=== PATIENT | male | born 1950 | race Caucasian/White ===

== ENCOUNTER 2022-11-08 13:49 | Outpatient (CLI) | payer MEDICARE, SELFPAY ==
--- NOTE | 2022-11-08 15:07 | ECG_ITS ---
Measurements Intervals [place] Rate: 63 P: 2 OK: 185 QRS: -21 QRSD: 118 T: 8 QT: 394 QTc: 404 Interpretive Statements SINUS RHYTHM BORDERLINE LEFT AXIS DEVIATION [QRS AXIS < -20] INCOMPLETE RIGHT BUNDLE BRANCH BLOCK [90+ ms QRS DURATION, TERMINAL R IN V1/V2, 40+ ms S IN I/aVL/V4/V5/V6] MODERATE VOLTAGE CRITERIA FOR LVH, CONSIDER NORMAL VARIANT [MEETS CRITERIA IN ONE OF: R(aVL), S(V1), R(V5), R(V5/V6)+S(V1)] NO PREVIOUS ECG AVAILABLE FOR COMPARISON Electronically Signed On 11-09-2022 12:10:12 CDT by Phil Mcmillan M.D.
[2022-11-08 15:32] LABS: Basophils Absolute Auto 0.1 K/mm3 (0.0-0.1); Basophils Percent Auto 0.5 % (0.2-1.2); Eosinophils Absolute Auto 0.3 K/mm3 (0-0.3); Eosinophils Percent Auto 3.1 % (0-4.4); Hematocrit 42.1 % (42.0-52.0); Hemoglobin 13.9 g/dL (14.0-18.0); Immature Granulocyte Absolute 0.07 K/mm3 (0.00-0.031); Immature Granulocyte Percent A 0.7 % (0-0.5); Lymphocytes Absolute Auto 1.94 K/mm3 (0.9-3.2); Lymphocytes Percent Auto 19.1 % (18.3-44.2); Mean Corpuscular Hemoglobin 32.5 pg (26-34); Mean Corpuscular Volume 98.4 fl (80-100); Monocytes Absolute Auto 0.9 K/mm3 (0.1-0.6); Monocytes Percent Auto 8.8 % (2.6-8.5); Neutrophils Absolute Auto 6.9 K/mm3 (1.3-6.7); Neutrophils Percent Auto 67.8 % (45.5-73.1); Platelet Count Result 197 k/mm3 (150-375); Red Blood Count 4.28 M/mm3 (4.6-6.20); Red Cell Distribution Width 11.9 % (11.5-14.5); White Blood Count 10.2 K/mm3 (4.5-10.0)
[2022-11-08 15:59] LABS: Hemoglobin A1C 5.4 % (<5.7)
[2022-11-08 16:01] LABS: Urine Cotinine NEGATIVE
== END 2022-11-08 13:50 | disposition home or self-care (01) ==
LOC: ANHSURGERY 13:56
PROVIDERS: PCP Family Medicine; Visit Provider Orthopaedic Surgery
DX: Z01.818 Encounter for other preprocedural examination (principal); M16.12 Unilateral primary osteoarthritis, left hip; E78.5 Hyperlipidemia, unspecified; I10 Essential (primary) hypertension; I45.10 Unspecified right bundle-branch block; R93.1 Abnormal findings on diagnostic imaging of heart and coronary circulation
CPT/HCPCS: 80307; 83036; 85025; 87081; 93005

== ENCOUNTER 2022-11-30 01:07 | Day surgery (SDC) | payer MEDICARE, SELFPAY ==
[2022-11-08 14:18] VITALS: BP 146/78; PULSE 66; RESP 16; TEMP 36.4; O2SAT 98; BMI 29.2
--- NOTE | 2022-11-08 14:37 | PC.NURSE ---
Report to the Outpatient Waiting Room, entrance under the green pavilion located off [facility], at time _12:00PM on date ___11/30/22____. Planned Procedure Time: __2:00PM . Time changes happen often and if your time is changed the preop area will call you the afternoon before. - You and your visitor will be asked to self-screen and do not enter if you have any COVID symptoms. - A mask is optional within the hospital at this time. Patients may have clear liquids (water, carbonated beverages, clear teas, apple juice) until 3 hours prior to surgery with a maximum of 20 ounces. - No food from midnight until time of surgery. Take the following medications with a SIP of water the morning of surgery: ____METOPROLOL DO NOT STOP ANY OF YOUR OTHER PRESCRIPTION MEDICATIONS PRIOR TO SURGERY ?EXCEPT THE FOLLOWING Medications to discontinue per physician ___HOLD ALL VITAMINS/SUPPLEMENTS 3 DAYS PRE-OP Date to take last dose__11/26/22 Please no make-up, nail venezuelan, hairspray, perfume, deodorant, or body powder the day of surgery. No jewelry (including any body piercings) or valuables the day of surgery, leave them at home. Please take a shower or bath the night before, or the morning of, surgery with an antibacterial soap. Wear comfortable, loose fitting clothing. - Jewelry must be removed prior to entering the operating room. Rings and piercings that are not removed may be cut off. - The hospital will not accept responsibility for valuables. - Please leave all valuables, including medications, at home the day of surgery. If you are going home after surgery, a licensed milk delivery driver must drive you home. - NO public transportation without another adult if you receive anesthesia. - We recommend that an adult stay with you for 24 hours following discharge. - We also recommend that you do not drive, make important decision, drink alcoholic beverages, or take any drugs that were not prescribed by your health care provider for at least 24 hours after your discharge time. Follow any additional instructions given to you from your surgeon. If you or anyone in your household have experienced Covid symptoms in the past week, please notify your surgeon or the nurse liaison at the phone number below for possible testing. Telephone instructions given to __PATIENT & WIFE and asked if any additional questions and then verbalized understanding. Patient advised to call surgeon office or pre surgery nurse liaison [phone] if any additional questions.
--- NOTE | 2022-11-29 14:11 | WPDANESEPPF ---
Anes - Initial Pre Proc Eval Procedure: Operation Date: 11/30/22 14:00 Proposed Procedures p Left Total Hip Arthroplasty - Niels Medina MD Date/Time: 11/29/22 14:11 Surgeon: Niels Medina MD Pre Op Diagnosis: Prim O A Lt Hip Patient Data Age: 72 Gender: M Height: 1.77 m Weight: 91.9 kg Last Vital Signs Temp 36.4 C L 11/08/22 14:18 Pulse 66 11/08/22 14:18 Resp 16 11/08/22 14:18 BP 146/78 H 11/08/22 14:18 Pulse Ox 98 11/08/22 14:18 O2 Del Method Room Air 11/08/22 14:18 Allergies Allergy/AdvReac Type Severity Reaction Status Date / Time No Known Allergies Allergy Verified 11/30/22 12:11 Home Medications Medication Instructions Recorded Confirmed Type docusate sodium 100 mg capsule 100 mg PO DAILY 11/12/21 11/30/22 History finasteride 5 mg tablet 5 mg PO DAILY 11/12/21 11/30/22 History lisinopril 10 mg tablet 10 mg PO QAM 11/12/21 11/30/22 History omeprazole 20 mg capsule,delayed 20 mg PO EVERY OTHER DAY 11/12/21 11/30/22 History release tadalafil 5 mg tablet (Cialis) 5 mg PO Q3-4D 11/12/21 11/30/22 History atorvastatin 10 mg tablet 10 mg PO HS 11/23/21 11/30/22 History metoprolol tartrate 25 mg tablet 12.5 mg PO BID 09/24/22 11/30/22 History coenzyme Q10 100 mg capsule 200 mg PO HS 11/08/22 11/30/22 History (CoQ-10) ibuprofen 200 mg tablet 600 mg PO Q6H PRN Pain 11/08/22 11/30/22 History aspirin 81 mg tablet,delayed 81 mg PO BID 14 days #28 tabs 11/30/22 Rx release meloxicam 15 mg tablet 15 mg PO DAILY #30 tabs 11/30/22 Rx oxycodone-acetaminophen 5 mg-325 1 - 2 tablet PO Q4-6H PRN pain #30 11/30/22 Rx mg tablet tabs amoxicillin 500 mg-potassium 1 tablet PO Q12H #20 tabs 12/04/22 Rx clavulanate 125 mg tablet Patient hx anesthesia problems: none Family hx anesthesia problems: none Results Review: All pre-operative results and documents have been reviewed as part of the pre-operative evaluation. [facility] Past Medical History Medical History (Updated 11/30/22 @ 07:45 by JACKIE Izquierdo) Fistula Hyperlipidemia Hypertension Kidney stones Non-sustained ventricular tachycardia Sleep apnea Surgical History Surgical History (Updated 11/30/22 @ 07:45 by JACKIE Izquierdo) History of adenoidectomy History of detached retina repair History of inguinal hernia repair History of lithotripsy History of loop recorder (~08/27/22) History of rectal surgery History of tonsillectomy History of tooth extraction Family History Family History Mother Dementia Father Stomach cancer Bladder cancer Enlarged heart Sibling ALS (amyotrophic lateral sclerosis) Other Pancreatic cancer Social History Social History Smoking status: Never smoker Tobacco type: cigarettes Smokeless tobacco user: chewing tobacco Smoking end date: 02/07/97 Additional smoking assessment comments: QUIT CHEWING TABACCO 1994 Alcohol intake: current Drinks per week: 1 Substance use: never Substance use type: does not use Lack of Transportation: No Lack of Food: Never True Current Housing: I Have Housing Concerned About Future Housing: No Difficulty Paying Gas/Electric Bills: No Difficulty Paying for Meds: No Currently Unemployed: No Education: High School Diploma/GED Difficulty w/ Childcare or Family Care: No Living arrangements: with family Additional living arrangements comments: Spiritual care concerns: No Anes - Eval Final PreProcedure Day of Procedure 11/29/22 14:11 Patient weight: overweight Heart: regular rate and rhythm Lungs: clear to auscultation Airway: Mallampati scale class II Neurological: alert and oriented Last oral intake: >/= 8 hours ASA classification: III Emergent: no Anesthetic plan: proceed Anesthesia type and monitoring: general ETT
[2022-11-30] VITALS (13 sets, daily range): BP systolic 129–148; BP diastolic 64–104; PULSE 76–96; RESP 12–20; TEMP 36.2–36.9; O2SAT 95–99
--- NOTE | ~2022-11-30 | XR_ITS ---
EXAMINATION: XR hip LT min 2V DATE: 11/30/2022 16:11 INDICATION: Total left hip arthroplasty. Postop. TECHNIQUE: 2 views of left hip were obtained. COMPARISON: Left hip radiographs 09/24/2022 FINDINGS: There is a total left hip arthroplasty in near-anatomic alignment. No fracture. There is ga s in the soft tissues, consistent with recent surgery. IMPRESSION: 1. Total left hip arthroplasty in near-anatomic alignment. Reviewed, dictated and finalized at location E.
--- NOTE | 2022-11-30 10:35 | WPDHPUPDATE1 ---
History and Physical Update Update Date/Time: 11/30/22 10:35 History and Physical has been reviewed, including an updated exam of the patient. There are NO changes in the patient's condition. Risks, benefits, and alternatives have been discussed and questions answered. Patient agrees to proceed with procedure.
[2022-11-30] MEDS: ACETAMINOPHEN 500 MG TABLET 1000 MG PO ×3 (12:30→22:54)
[2022-11-30] MEDS: LACTATED RINGERS 1,000 ML 30 ML IV CONT ×2 (12:40→15:42)
[2022-11-30] MEDS: TRANEXAMIC ACID 1,000MG/ISO100 1,000 MG/100 ML BAG 200 MG IVPB (13:29)
[2022-11-30] MEDS: ceFAZolin 2 GM/D5W 50 ML 2 GM/50 ML BAG IVPB ×2 (13:43→21:06)
--- NOTE | 2022-11-30 15:41 | W.PM.PROC2 ---
Procedure Note - Detailed Date of Procedure 11/30/22 Pre-op Diagnosis Prim O A Lt Hip Post-op Diagnosis Same Procedure Performed Left Total Hip Arthroplasty Surgeon Niels Medina MD Pastrycook Caryn Almanzar PA-C Anesthesia General Findings Good bone quality. Large stature. Large inferior osteophyte excised. Very stiff and contracted joint. Description of Procedure The patient was given preoperative antibiotics. A general anesthetic was administered. The patient was carefully placed in the lateral decubitus position on the PEG board. The shoulders and hips were carefully positioned for component and leg length positioning reference. The hip was prepped and draped in the usual sterile fashion. A longitudinal incision was created over the posterior aspect of the greater trochanter. Careful dissection was brought down through the deep fascia with electrocautery. A minimally invasive optimized posterior approach to the hip was performed. The short external rotators and capsule were taken down in an L-shaped capsulotomy. The tissue was tagged for later repair using number 2 high strength suture. The femoral neck was measured and taken in situ. The femoral head was removed. The acetabulum was carefully exposed. The inferior capsule was released. The labrum was resected. The acetabulum was sequentially reamed to the intended cup size. The cup was impacted into position with excellent press-fit. Typical anatomic landmarks, including the bony contact points as well as the inferior transverse acetabular ligament were used to confirm cup positioning with preoperative templating. Attention was turned to the femur, which was carefully exposed. The hip was reamed and then broached sequentially. Excellent press-fit was obtained with the broach. The hip was trialed. Measurements were utilized, including the lesser trochanter as well as the center of the femoral head and the tip of the trochanter, and excellent assessment of the offset and leg lengths were confirmed. The real component was impacted into position. Trialing confirmed appropriate leg length and offset with soft tissue balancing as well apparent feel of the leg, both at the knee and the heel. Soft tissues were assessed using the the iliotibial band. Reduction of the posterior capsule and external rotators were also used as a secondary assessment. The hip was copiously irrigated with pulsatile lavage antibiotic solution periodically throughout the procedure. The real components were then assembled and reduced. The hip was stable throughout typical maneuvers, including extension, external rotation to 70 degrees, the position of sleep as well as flexion to 90 degrees with internal rotation to 45 degrees. The shake test confirmed stability without impingement. Osteophytes were removed as necessary. The short external rotators and capsule were repaired back to the posterior trochanter through drill holes. The deep fascia was repaired with running number 2 Quill suture, followed by 0 Stratafix suture and 2-0 Stratafix suture in the dermis. Steri-Strips were placed on the skin, followed by a sterile silver occlusive dressing. There were no complications. Meticulous hemostasis was maintained with the AquaMantys device. The patient was brought to the recovery room in stable condition. There were no complications. Physician night assistant, Caryn Almanzar PA-C, required for surgery; including patient positioning, draping, tissue retraction, maintaining instrument position, hip dislocation/ relocation, wound closure, and dressing placement. Implants The Accolade II hip stem, 127 degree size 8 , was utilized with excellent press-fit. The 58 mm Trident II acetabular component was impacted with excellent press-fit stability. 10 degree elevated polyethylene liner. The +2.5, 36 mm Biolox ceramic femoral head was utilized. Estimated Blood Loss 200 Drains No Packing No Pathology None sent Com
--- NOTE | 2022-11-30 17:00 | PC.NURSE ---
This patient, Austin Gamez, was admitted to [facility] Surg Room 319-01. Patient/family oriented to hospital policies and general routines including ID bracelet, bed and alarms, visiting hours, pain management, procedures, bathroom and other care routines, personal items, smoking policy, room service/diet, and visiting hours. Information on how to activate the Rapid Response Team has been discussed. Patient/Family are encouraged to report perceived risks to care and to ask questions if they do not understand what they are told or what they should do.
[2022-11-30] MEDS: MELOXICAM 7.5 MG TABLET PO (17:57)
[2022-11-30] MEDS: SENNA/DOCUSATE SODIUM TABLET 2 TAB PO (17:58)
[2022-11-30] MEDS: PANTOPRAZOLE 40 MG TABLET PO (17:58)
[2022-11-30] MEDS: ASPIRIN 81 MG ENTERIC TABLET PO (17:58)
[2022-11-30] MEDS: ATORVASTATIN 10 MG TABLET PO (21:05)
[2022-11-30] MEDS: FAMOTIDINE 20 MG TABLET PO (21:06)
[2022-11-30] MEDS: METOPROLOL TARTRATE 12.5 MG TABLET PO (21:06)
[2022-12-01] VITALS: BP 119/69; PULSE 74; RESP 18; TEMP 36.3; O2SAT 98
[2022-12-01] MEDS: CYCLOBENZAPRINE HCL 10 MG TABLET PO (01:09)
[2022-12-01 04:00] VITALS: BP 136/68; PULSE 86; RESP 18; TEMP 37.2; O2SAT 97
[2022-12-01] MEDS: ACETAMINOPHEN 500 MG TABLET 1000 MG PO ×2 (04:23→09:37)
[2022-12-01] MEDS: ceFAZolin 2 GM/D5W 50 ML 2 GM/50 ML BAG IVPB ×2 (04:23→11:02)
[2022-12-01 06:02] LABS: Basophils Percent Auto 0.2 % (0.2-1.2); Eosinophils Percent Auto 0.1 % (0-4.4); Hematocrit 37.2 % (42.0-52.0); Hemoglobin 12.4 g/dL (14.0-18.0); Immature Granulocyte Absolute 0.06 K/mm3 (0.00-0.031); Immature Granulocyte Percent A 0.5 % (0-0.5); Lymphocytes Absolute Auto 1.04 K/mm3 (0.9-3.2); Lymphocytes Percent Auto 8.8 % (18.3-44.2); Mean Corpuscular HGB Conc 33.3 g/dl (32-36); Mean Corpuscular Hemoglobin 32.1 pg (26-34); Mean Corpuscular Volume 96.4 fl (80-100); Mean Platelet Volume 9.6 fl (7.4-10.4); Monocytes Absolute Auto 1.5 K/mm3 (0.1-0.6); Monocytes Percent Auto 12.6 % (2.6-8.5); Neutrophils Absolute Auto 9.2 K/mm3 (1.3-6.7); Neutrophils Percent Auto 77.8 % (45.5-73.1); Platelet Count Result 172 k/mm3 (150-375); Red Blood Count 3.86 M/mm3 (4.6-6.20); Red Cell Distribution Width 12.1 % (11.5-14.5); White Blood Count 11.8 K/mm3 (4.5-10.0)
[2022-12-01 06:16] LABS: Anion Gap 8 mmol/L (8-16); Blood Urea Nitrogen 19 mg/dL (9-20); Calcium 8.5 mg/dL (8.4-10.2); Carbon Dioxide 23 mmol/L (22-30); Chloride 102 mmol/L (98-107); Estimated CRCL calculation 72 ml/min; Estimated Glomerular Filt Rate > 60; Glucose 124 mg/dL (65-110); Potassium 3.7 mmol/L (3.4-5.0); Sodium 133 mmol/L (137-145)
[2022-12-01 08:00] VITALS: BP 133/67; PULSE 82; RESP 16; TEMP 36.3; O2SAT 97
--- NOTE | 2022-12-01 08:43 | PM.DS ---
DS: Admitting Diagnosis Discharge Date 12/01/22 Admitting Diagnosis OA Left hip DS: Discharge Diagnosis Discharge Diagnosis (1) Status post total hip replacement, left: Code(s): Z96.642 - Presence of left artificial hip joint Status: Acute Assessment and Plan: Postop day 1: Left total Hip arthroplasty. Patient tolerated procedure well. No complications. Pain manageable with pain medication. No numbness or tingling. We had a lengthy discussion regarding postoperative wound care, limitations, expectations, and exercises. Patient shows good understanding. He has had initial physical therapy and is tolerating it well. DVT prophylaxis: 81 mg baby aspirin b.i.d. for 14 days. Pain medication: Percocet. Meloxicam. Patient has followup appointment with Dr. Medina in 3 weeks. DS: Summary Hospital Course Reason for hospitalization: Total hip arthroplasty Hospital Course: Patient tolerated procedure well. Has had initial PT/OT. Patient did have bleeding from incision site. Dressing removed, cleaned with Betadine, steri strips reapplied, dressing reapplied. No drainage at the time of discharge. Status at Discharge Functional status at discharge: uses cane/walker Overall status at discharge: patient is progressing back to baseline Time Spent with Patient Time attestation: Total time spent providing and/or coordinating discharge services: Exam Narrative: Thin, tall Male. Resting comfortably in chair. Wearing compression socks bilaterally. Dressing dry and intact with no drainage. Mild swelling. No ecchymosis. No erythema. No hematoma. Range of motion limited due to pain. Calf nontender. Thigh nontender. Neurologic status intact. No varicosities. Distal pulses palpable. DS: Data Data Completed and Pending Labs on day of discharge: Labs from last 24 hours 12/01/22 11/30/22 05:47 12:34 WBC 11.8 H RBC 3.86 L Hgb 12.4 L Hct 37.2 L MCV 96.4 MCH 32.1 MCHC 33.3 RDW 12.1 Plt Count 172 MPV 9.6 Immature Gran % (Auto) 0.5 Neut % (Auto) 77.8 H Lymph % (Auto) 8.8 L [place] % (Auto) 12.6 H Eos % (Auto) 0.1 Baso % (Auto) 0.2 Lymph # (Auto) 1.04 [place] # (Auto) 1.5 H Eos # (Auto) 0.0 Baso # (Auto) 0.0 Abs Immat Gran (auto) 0.06 H Absolute Neuts (auto) 9.2 H Absolute Nucleated RBC 0.0 Nucleated RBC % 0.0 Sodium 133 L Potassium 3.7 Chloride 102 Carbon Dioxide 23 Anion Gap 8 BUN 19 Creatinine 0.80 Estim Creat Clear Calc 72 Estimated GFR > 60 Glucose 124 H Calcium 8.5 Blood Type A Positive Antibody Screen Negative Discharge Plan Discharge Patient Disposition: Home, Self-Care Discharge Instructions: See green instruction sheets Patient Instructions: Oxycodone/Acetaminophen (By mouth), Narcotic Safety (DC), Surgical Site Infections (GEN), Precautions after Total Joint Replacement Surgery (DC), Total Hip Replacement (DC) Stand Alone Forms: General Discharge Instructions Follow-up/Referrals: Caryn Almanzar PA [Physician Small Business Banking Officer] - Discharge Medications: New meloxicam 15 mg tablet 15 mg PO DAILY Qty: 30 0RF Rx Instructions: Cut in half. Take 1/2 in morning and 1/2 at night. Take with food. Stop if stomach upset. aspirin 81 mg tablet,delayed release (DR/EC) 81 mg PO BID 14 Days Qty: 28 0RF oxycodone-acetaminophen 5-325 mg tablet 1 - 2 tablet PO Q4-6H MDD 6 PRN (Reason: pain) Qty: 30 0RF Continued atorvastatin 10 mg tablet 10 mg PO HS lisinopril 10 mg tablet 10 mg PO QAM tadalafil [Cialis] 5 mg tablet 5 mg PO Q3-4D Rx Instructions: TAKES EVERY 3RD DAY docusate sodium 100 mg capsule 100 mg PO DAILY finasteride 5 mg tablet 5 mg PO DAILY omeprazole 20 mg capsule,delayed release(DR/EC) 20 mg PO EVERY OTHER DAY metoprolol tartrate 25 mg tablet 12.5 mg PO BID coenzyme Q10 [CoQ-10] 100 mg Capsule
[2022-12-01 09:35] VITALS: PULSE 82
[2022-12-01] MEDS: METOPROLOL TARTRATE 12.5 MG TABLET PO (09:35)
[2022-12-01] MEDS: lisinopriL 10 MG TABLET PO (09:35)
[2022-12-01] MEDS: MELOXICAM 7.5 MG TABLET PO (09:35)
[2022-12-01] MEDS: DOCUSATE SODIUM 100 MG CAPSULE PO (09:35)
[2022-12-01] MEDS: ASPIRIN 81 MG ENTERIC TABLET PO (09:36)
[2022-12-01] MEDS: FINASTERIDE 5 MG TABLET PO (09:36)
[2022-12-01] MEDS: polyethylene glycoL 3350 17 GM POWD.PACK PO (09:36)
[2022-12-01] MEDS: SENNA/DOCUSATE SODIUM TABLET 2 TAB PO (09:36)
[2022-12-01] MEDS: FAMOTIDINE 20 MG TABLET PO (09:36)
[2022-12-01 12:00] VITALS: BP 117/56; PULSE 83; RESP 16; TEMP 36.3; O2SAT 95
== END 2022-12-01 12:35 | disposition home or self-care (01) ==
LOC: ANHSURGERY 11:45 → ANH3MEDSUR 12-01 02:14
PROVIDERS: Physician Assistant Surgical; PCP Family Medicine; Visit Provider Orthopaedic Surgery
PROC: (CPT 27130; principal; 2022-11-30 14:00)
DX: M16.12 Unilateral primary osteoarthritis, left hip (principal); E78.5 Hyperlipidemia, unspecified; I10 Essential (primary) hypertension; G47.30 Sleep apnea, unspecified; F17.220 Nicotine dependence, chewing tobacco, uncomplicated; Z80.52 Family history of malignant neoplasm of bladder; Z80.0 Family history of malignant neoplasm of digestive organs
CPT/HCPCS: 27130; 36415; 73502; 80048; 85025; 86850; 86900; 86901; 97110; 97161; 97165; 97530; 97535; A9270; C1776; J0171; J0690; J1100; J1170; J1885; J2250; J2270; J2405; J2704; J2795; J3010; J7120

== ENCOUNTER 2023-01-19 10:29 | Outpatient (CLI) | payer MEDICARE, SELFPAY ==
--- NOTE | ~2023-01-19 | XR_ITS ---
AP view of the pelvis and AP and lateral views of the left hip Clinical history: Pain Findings: No acute fracture or dislocation is seen. Left hip arthroplasty in place. Right hip joint s pace preserved. SI joints are intact. Soft tissues are unremarkable. Impression: No acute abnormality is seen. Left hip arthroplasty in place. Reviewed, dictated and finalized at location M. CHOPPER Impression: No acute abnormality is seen. Left hip arthroplasty in place.
== END 2023-01-19 10:30 | disposition home or self-care (01) ==
PROVIDERS: PCP Family Medicine; Visit Provider Orthopaedic Surgery
DX: Z09 Encounter for follow-up examination after completed treatment for conditions other than malignant neoplasm (principal); Z96.642 Presence of left artificial hip joint
CPT/HCPCS: 73502

== ENCOUNTER 2023-04-22 12:23 | Outpatient (CLI) | payer MEDICARE, SELFPAY ==
--- NOTE | ~2023-04-22 | XR_ITS ---
AP and lateral views of the left hip Clinical history: Pain Findings: No acute fracture or dislocation is seen.. Left hip arthroplasty in place, without hardware complication. Soft tissues are unremarkable. Impression: No acute abnormality. Left hip arthroplasty. Reviewed, dictated and finalized at location . Impression: No acute abnormality. Left hip arthroplasty.
--- NOTE | ~2023-04-22 | XR_ITS ---
Left Knee Technique: AP, lateral, and sunrise views were obtained. Clinical History: Pain Findings: No fracture or dislocation is seen. Osseous alignment is anatomic. Moderate tricompartmenta l degenerative change present. Soft tissues are unremarkable. No joint effusion is seen. Impression: Moderate tricompartmental degenerative change. Reviewed, dictated and finalized at [facility]. Impression: Moderate tricompartmental degenerative change.
--- NOTE | ~2023-04-22 | XR_ITS ---
Right Knee Technique: AP, lateral, and sunrise views were obtained. Clinical History: Pain Findings: No fracture or dislocation is seen. There is moderate tricompartmental degenerative change, with medial compartment narrowing. Soft tissues are unremarkable. No joint effusion is seen. Impression: Moderate tricompartmental degenerative change, with medial compartment narrowing. Reviewed, dictated and finalized at location . Impression: Moderate tricompartmental degenerative change, with medial compartment narrowin g.
== END 2023-04-22 12:24 | disposition home or self-care (01) ==
LOC: ANHIMG 12:26
PROVIDERS: PCP Family Medicine; Visit Provider Orthopaedic Surgery
DX: M17.0 Bilateral primary osteoarthritis of knee (principal); Z96.642 Presence of left artificial hip joint
CPT/HCPCS: 73502; 73564

== ENCOUNTER 2023-12-16 11:03 | Outpatient (CLI) | payer MEDICARE, SELFPAY ==
--- NOTE | ~2023-12-16 | XR_ITS ---
EXAMINATION: XR knee LT min 4V DATE: 12/16/2023 11:44 INDICATION: Unilateral primary osteoarthritis, left knee. TECHNIQUE: 5 views of left knee including standing views were obtained. COMPARISON: Left knee radiographs 04/22/2023 FINDINGS: There is varus angulation at the knee. No fracture. There is severe osteoarthritis of media l compartment, moderate osteoarthritis of patellofemoral compartment, and mild osteoarthritis of late ral compartment. There is a small knee joint effusion. IMPRESSION: 1. Severe left knee osteoarthritis. 2. Small left knee joint effusion. Reviewed, dictated and finalized at location A. CAL PATHOLOGIST
--- NOTE | ~2023-12-16 | XR_ITS ---
EXAMINATION: XR knee RT min 4V DATE: 12/16/2023 11:44 INDICATION: Unilateral primary osteoarthritis, right knee. TECHNIQUE: 6 views of right knee including standing views were obtained. COMPARISON: Right knee radiographs 04/22/2023 FINDINGS: There is varus angulation at the knee. No fracture. There is severe tricompartmental osteoa rthritis. No knee joint effusion. IMPRESSION: 1. Severe right knee osteoarthritis. Reviewed, dictated and finalized at location A. TANNER
== END 2023-12-16 11:04 | disposition home or self-care (01) ==
PROVIDERS: PCP Family Medicine; Visit Provider Orthopaedic Surgery
DX: M17.0 Bilateral primary osteoarthritis of knee (principal)
CPT/HCPCS: 73564

== ENCOUNTER 2024-05-30 13:39 | Outpatient (CLI) | payer MEDICARE, SELFPAY ==
--- NOTE | ~2024-05-30 | XR_ITS ---
XR knee RT min 4V Ordering provider: Niels Medina MD History: . unilateral primary osteoathritis . Comparison: December 16, 2023 FINDINGS: BONES: No acute fracture or dislocation. JOINT SPACES: Severe narrowing of the medial compartment. Marginal osteophytes in the knee and patell a. SOFT TISSUES: Normal. IMPRESSION: No acute osseous abnormality right knee. Severe osteoarthritic changes Reviewed, dictated and finalized at location A.
--- NOTE | ~2024-05-30 | XR_ITS ---
XR knee LT min 4V Ordering provider: Niels Medina MD History: . unilateral primary osteoathritis . Comparison: December 16, 2023 FINDINGS: BONES: No acute fracture or dislocation. JOINT SPACES: Severe narrowing of the medial compartment. Marginal osteophytes in the knee and patell a. Mild narrowing of the lateral compartment. SOFT TISSUES: Normal. IMPRESSION: No acute osseous abnormality left knee. Severe osteoarthritic changes. Reviewed, dictated and finalized at location A.
--- OUTSIDE RECORDS SUMMARY | 2024-05-30 15:48 | XMS_ITS | Encounter Summary ---
Author Organization [facility] Address [address] [place] [address] Care Team Providers Care Coffee Grinder Name Role Phone Benny Rivas MD Primary Care Provider [phone] Elliott Vaughn MD Unavailable [phone] Garland Irvin MD Unavailable [phone] Niels Medina MD Unavailable [phone] Encounter Details Date Type Department Care Team (Late st Contact Info) Description 10/13/2022 Abstract [facility] [address] [place] [address] Garland Irvin MD [address] [place] [address] Social History Tobacco Use Types Packs/Day Years Used Date Smoking Tobacco: Never Smokeless Tobacco: Former Alcohol Use Standard Drinks/Week Comments Never 0 (1 standard drink = 0.6 oz pur e alcohol) Sex and Gender Information Value Date Recorded Sex Assigned at Male 05/02/2024 8:39 AM CDT Legal Sex Male 10:09 PM STRIPER Gender Identity Not on file Sexual Orientation Not on file documented as of this encounter Functional Status * RETIRED Are you deaf or do you have serious difficulty hearing Answer Date of Assessment Author Status No 01/09/2022 5:50 PM STRIPER Activ e * RETIRED Are you blind or do you have serious difficulty seeing, even when wearing glasses? Answer Date of Assessment Author Status No 01/09/2022 5:50 PM STRIPER Activ e * Do you have serious difficulty walking or climbing stairs? Answer Date of Assessment Author Status No 01/09/2022 5:50 PM Alem Fajardo RN Active * Do you have difficulty dressing or bathing? Answer Date of Assessment Author Status No 01/09/2022 5:50 PM Alem Fajardo RN Active * Because of a physical, mental, or emotional condition, do you have difficulty doing errands alone such as visiting a doctor's office or shopping? Answer Date of Assessment Author Status No 01/09/2022 5:50 PM Alem Fajardo RN Active documented as of this encounter Mental Status * Because of a physical, mental, or emotional condition, do you have serious difficulty concentrating, remembering, or making decisions? Answer Entry Date Author Status No 01/09/2022 5:50 PM Alem Fajardo RN Active documented in this encounter Plan of Treatment Upcoming Encounters Date Type Department Care Team (Late st Contact Info) Description 06/15/2024 1:00 AM CDT [facility] [address] [place] [phone] Elliott Vaughn MD [address] [place] [address] 09/20/2024 11:30 AM CDT Office Visit [facility] [address] Garland Irvin MD [address] [place] [phone] documented as of this encounter Visit Diagnoses Not on filedocumented in this encounter Care Teams Coffee Grinder Relationship Specialty [place] [address] [place] [address] [place] [id number] PCP - General FAMILY PRACTICE 10/09/21 Elliott Vaughn MD [address] [place] [address] EP Senior Health Consultant CLINICAL CARDIAC ELECTROPHYSIOLOGY 01/15/22 Garland Irvin MD [address] [place] [address] [facility] CARDIOVASCULAR DISEASE 10/19/22 Niels Medina MD [address] [address] ORTHOPAEDIC SURGERY 10/19/22 documented as of this encounter
--- OUTSIDE RECORDS SUMMARY | 2024-05-30 15:48 | XMS_ITS | Clinical Summary ---
Author Organization [facility] Address [address] [place] [address] Care Team Providers Care Hydrogen Cell Tender Name Role Phone Benny Rivas MD Primary Care Provider [phone] Elliott Vaughn MD Unavailable [phone] Garland Irvin MD Unavailable [phone] Niels Medina MD Unavailable [phone] Allergies No known active allergies Medications atorvastatin (LIPITOR) 10 MG tablet Take 1 tablet (10 mg total) by mouth nightly at bedtime. at bedtime. 2 Active Docusate Sodium (DSS) 100 MG Cap Take 100 mg by mouth daily. Active finasteride (PROSCAR) 5 MG tablet Take 1 tablet (5 mg total) by mouth daily. 2 Active lisinopril (PRINIVIL) 10 MG tablet Take 1 tablet (10 mg total) by mouth daily. 2 Active omeprazole (PRILOSEC) 20 MG capsule Take 1 capsule (20 mg total) by mouth every other day. Active tadalafil (CIALIS) 5 MG tablet Take 1 tablet (5 mg total) by mouth see administration instructions. Every 3rd day Active metoprolol tartrate (LOPRESSOR) 25 MG tablet Take 0.5 tablets (12.5 mg total) by mouth 2 (two) times daily. 60 tablet 2 Active Active Problems Problem Noted Date Diagnosed Date Non-sustained ventricular tachycardia (CMS/HCC H HS/HCC) 10/20/2023 History of COVID-19 10/20/2023 Hypertension, essential 10/20/2023 Hypercholesterolemia 10/20/2023 Implantable loop recorder present 03/21/2023 Palpitation 03/21/2023 H/O chest pain 01/09/2022 Encounters Date Type Department Care Team Description 05/02/2024 8:40 AM CDT - 05/02/2024 11:59 PM CDT Hospital Encounter [place] [address] Kimberly Sotomayor III, MD Discharge Disposition: Home or Self Care (Routine Discharge) 05/02/2024 Orders Only [facility] [place] [address] Kimberly Sotomayor III, MD 05/02/2024 Travel 04/27/2024 1:00 AM CDT Allied Health[facility] [address] [place] [address] Elliott Vaughn MD 03/09/2024 2:15 AM DATA GOVERNANCE ANALYST [facility] [address] [place] [address] Elliott Vaughn MD from Last 3 Months Immunizations Immunization Administration Dates Next Due Fluzone High Dose - >Age 65 (Prefilled Syringe) 12/17/2022,12/11/2021,11/19/2020 Influenza Adult (Generic) 11/08/2016 Pneumococcal (Prevnar 20) 06/17/2022 Shingrix 07/04/2020 Social History Tobacco Use Types Packs/Day Years Used Date Smoking Tobacco: Never Smokeless Tobacco: Former Tobacco Cessation:Counseling Given: Not Answered Comments:Pt chewed tobacco 40 years ago. 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 Gender Identity Not on file Sexual Orientation Not on file Last Filed Vital Signs Vital Sign Reading Time Taken Comments Blood Pressure 148/80 10/20/2023 12:30 PM CDT Pulse 63 10/20/2023 12:29 PM CDT Temperature 36.3 C (97.3 F) 08/27/2022 12:07 PM CDT Respiratory Rate 16 10/20/2023 12:29 PM CDT Oxygen Saturation 97% 10/20/2023 12:29 PM CDT Inhaled Oxygen Concentration - - Weight 90.7 kg (200 lb) 10/20/2023 12:29 PM CDT Height 177.8 cm (5' 10 ) 10/20/2023 12:29 PM CDT Body Mass Index 28.7 10/20/2023 12:29 PM CDT Plan of Treatment Upcoming Encounters Date Type Department Care Team (Late st Contact Info) Description 06/15/2024 1:00 AM CDT [facility] [address] [place] [phone] Elliott Vaughn MD [address] [place] [address] 09/20/2024 11:30 AM CDT Office Visit [facility] [address] [phone] Garland Irvin MD [address] [place] [phone] Health Maintenance Due Date Last Done Comments Hepatitis C 1966 DTaP, Tdap and Td Vaccines (1 - Tdap) 04/30/1967 Annual Medicare Wellness Visit 2013 Zoster Vaccines (2 of 2) 08/29/2020 07/04/2020 RSV Immunization or 60+ Years (1 - 1-dose 75+ series) 04/30/2023 COVID-19 Vaccine ( season) 2023 11/10/2022, 11/24/2021, 05/18/2021, Additional history exists Pneumococcal Vaccine: 50+ Years Completed 06/17/2022 Meningococcal B Vaccine Aged Out No l onger eligible based on patient's age to complete this topic Meningococcal Vaccine Aged Out No ulices linda eligible based on patient's age to complete this topic RSV Immunizations Under 20 Months Aged Out No longer eligible based on patient's age to complete this topic Medical Devices Implanted Type Area Loan Funder Device Identifier Shelf Expiration Date Model / Serial / Lot Medtronic Linq Ii-08/27/2022 Implanted:2022 by Elliott Vaughn MD (Quantity not on file) Implantable Loop Recorder [employer] 12/03/2023 [id number] / [id number] / Description:DX: Palpitations Procedures Procedure Name Priority Date/Time Associated Diagnosis Comments PROSTATE SPECIFIC ANTIGEN,TOTAL Routine 05/02/2024 8:54 AM CDT Abnormal PSA from Last 3 Months Results * (ABNORMAL) PROSTATE SPECIFIC ANTIGEN, DIAG (05/02/2024 8:54 AM CDT) PSA 9.66(H) <4.00 NG/ML 05/02/2024 9:58 AM CDT [facility] Comment: ASSAY PERFORMED BY ENZYME IMMUNOASSAY METHODOLOGY USING SIEMENS DIMENSION REAGENT. PATIENT RESULTS DETERMINED BY ASSAYS FROM DIFFERENT MANUFACTURERS AND/OR BY DIFFERENT METHODS MAY NOT BE COMPARABLE. 05/02/2024 8:54 AM CDT Kimberly Sotomayor III, MD LABORATORY Final Re sult [facility] [address] [place] [address], from Last 3 Months Insurance MEDICARE COUNTRY INSURANCE Advance Directives * Full Code (Latest Code Status on File) Date Activated Date Inactivated Comments 01/09/2022 5:43 PM 01/10/2022 3:04 PM Care Teams Hydrogen Cell Tender Relationship Specialty Start Date End Date Benny Rivas MD [address] [place] [address] PCP - General FAMILY PRACTICE 10/09/21 Elliott Vaughn MD [address] [place] [address] EP Hat Steamer CLINICAL CARDIAC ELECTROPHYSIOLOGY 01/15/22 Garland Irvin MD [address] [place] [address] Ashley Hat Steamer CARDIOVASCULAR DISEASE 10/19/22 Niels Medina MD [address] [address] ORTHOPAEDIC SURGERY 10/19/22
--- OUTSIDE RECORDS SUMMARY | 2024-05-30 15:48 | XMS_ITS | Encounter Summary ---
Author Organization [facility] Address [address] [place] [address] Care Team Providers Care Insurance Claim Representative Name Role Phone Benny Rivas MD Primary Care Provider [phone] Elliott Vaughn MD Unavailable [phone] Garland Irvin MD Unavailable [phone] Niels Medina MD Unavailable [phone] Encounter Details Date Type Department Care Team (Late st Contact Info) Description 07/15/2018 Abstract [facility] CONVERSION [address] [place] [address] , Generic Conversion, Social History Tobacco Use Types Packs/Day Years Used Date Smoking Tobacco: Never Assessed Sex and Gender Information Value Date Recorded Sex Assigned at Male 05/02/2024 8:39 AM CDT Legal 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 [address] 09/20/2024 11:30 AM CDT [facility] [address] [place] [phone] Garland Irvin MD [address] [place] [phone] documented as of this encounter Visit Diagnoses Not on filedocumented in this encounter Additional Health Concerns Infection Onset Date Last Indicated Resolved Time COVID-19 Rule Out 01/09/2022 01/09/2022 01/09/2022 3:44 PM JAVA FRONT END WEB DEVELOPER COVID-19 Confirmed 01/09/2022 01/09/2022 12:33 AM JAVA FRONT END WEB DEVELOPER documented as of this encounter Care Teams Insurance Claim Representative Relationship Specialty Start Date End Date Benny Rivas MD [address] [place] [phone] PCP - General FAMILY PRACTICE 10/09/21 Elliott Vaughn MD [address] [place] [address] EP Benefits Specialist Recruiter CLINICAL CARDIAC ELECTROPHYSIOLOGY 01/15/22 Garland Irvin MD [address] [place] [address] Burna Benefits Specialist Recruiter CARDIOVASCULAR DISEASE 10/19/22 Niels Medina MD [address] [address] ORTHOPAEDIC SURGERY 10/19/22 documented as of this encounter
--- OUTSIDE RECORDS SUMMARY | 2024-05-30 15:48 | XMS_ITS | Encounter Summary ---
Author Organization [facility] Address [address] [place] [address] Care Team Providers Care Riprap Worker Name Role Phone Benny Rivas MD Primary Care Provider [phone] Elliott Vaughn MD Unavailable [phone] Garland Irvin MD Unavailable [phone] Niels Medina MD Unavailable [phone] Encounter Details Date Type Department Care Team (Late st Contact Info) Description 08/24/2022 Hospital Orders Only [facility] Manager Pre/Post [address] [place] [address] Elliott Vaughn MD [address] [place] [address] Social History Tobacco Use Types Packs/Day Years Used Date Smoking Tobacco: Never Smokeless Tobacco: Former Alcohol Use Standard Drinks/Week Comments Never 0 (1 standard drink = 0.6 oz pur e alcohol) Sex and Gender Information Value Date Recorded Sex Assigned at Male 05/02/2024 8:39 AM CDT Legal 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 Answer Date of Assessment Author Status No 01/09/2022 5:50 PM MACHINE TAPER Activ e * Do you have serious [...] 5:50 PM Alem Fajardo RN Active * Calculated C-SSRS Risk Score (Lifetime/Recent) Answer Date of Assessment Author Status No Risk Indicated 08/27/2022 11:49 AM CDT Luz Maria Perry RN Active * Irma Suicide Severity Rating Scale (Screener/Recent Self-Report) Question Answer Date of Assessment Author Status 1. Wish to be (Past 1 Month) No 08/27/2022 11:49 AM ARONT Candy Perry RN Ac tive 2. Non-Specific Active Suicidal Thoughts (Past 1 Month) No 08/27/2022 11:49 AM ARONT Candy Perry RN Ac tive 6. Suicidal Behavior (Lifetime) No 08/27/2022 11:49 AM ARONT Candy Perry RN Ac tive documented as of this encounter Mental Status [...] AM CDT Allied Health[facility] [address] [place] [address] Elliott Vaughn MD [address] [place] [address] 09/20/2024 11:30 AM CDT Office Visit [facility] [phone] Garland Irvin MD [address] [place] [address] documented as of this encounter Visit Diagnoses Not on filedocumented in this encounter Care Teams Riprap Worker Relationship Specialty Start Date End Date Benny Rivas MD [address] [place] [phone] PCP - General FAMILY PRACTICE 10/09/21 Elliott Vaughn MD [address] [place] [address] EP Sample Hand CLINICAL CARDIAC ELECTROPHYSIOLOGY 01/15/22 Garland Irvin MD [address] [place] [phone] Meredith Sample Hand CARDIOVASCULAR DISEASE 10/19/22 Niels Medina MD [address] [address] ORTHOPAEDIC SURGERY 10/19/22 documented as of this encounter
--- OUTSIDE RECORDS SUMMARY | 2024-05-30 15:48 | XMS_ITS | Clinical Summary ---
Author Organization [facility] [address] at [address] [facility] [address] Address [address] [place] [address] Care Team Providers Care Veneer Sander Name Role Phone Benny Rivas MD Primary Care Provider [phone] Allergies No known active allergies Medications lisinopril (PRINIVIL,ZESTRI L) 10 mg tablet Take 10 mg by mouth daily. Active finasteride (PROSCAR) 5 mg tablet Take 5 mg by mouth daily. Active docusate sodium (COLACE) 100 mg capsuleIndicatio ns:constipation Take 100 mg by mouth 2 (two) times a day. Active omeprazole (PriLOSEC) 20 mg capsule Take 20 mg by mouth daily. Active tadalafil (CIALIS) 5 mg tablet Take 5 mg by mouth daily. Active glucosamine sulfate 2KCl 1,000 mg tablet Take by mouth. Active Active Problems Problem Noted Date Diagnosed Date Kidney stone 09/29/2017 Bladder stone 09/29/2017 Resolved Problems Problem Noted Date Diagnosed Date Resolved Date Recurrent inguinal hernia wi thout obstruction or gangrene 05/18/2018 07/06/2018 Right inguinal hernia 09/29/20172018 Surgical History Surgery Date Site/Laterality Comments RECTAL SURGERY 02/07/2010 - 02/06/2011 RETINAL DETACHMENT SURGERY 2010, 2013 Bilateral Medical History Medical History Date Comments Kidney stone 2009 Bladder stone 2016 Lithotripsy Family History Medical History Relation Name Comments Bladder Cancer Father Hernia Father's Brother Relation Name Status Comments Father Father's Brother Mother Alive Social History Tobacco Use Types Packs/Day Years Used Date Smoking Tobacco: Unknown Smokeless Tobacco: Former Chew Quit: 1997 Alcohol Use Standard Drinks/Week Comments Yes 1 (1 standard drink = 0.6 oz pur e alcohol) Sex and Gender Information Value Date Recorded Sex Assigned at Not on file 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 Gender Identity Not on file Sexual Orientation Not on file Occupation Industry Job Start Date Job End Date Not on file Not on file Not on file Not on file Obstetrics History Last Filed Vital Signs Vital Sign Reading Time Taken Comments Blood Pressure 140/78 08/24/2018 11:33 AM CDT Pulse - - Temperature - - Respiratory Rate - - Oxygen Saturation - - Inhaled Oxygen Concentration - - Weight 97.5 kg (215 lb) 08/24/2018 11:33 AM CDT Height 177.8 cm (5' 10 ) 08/24/2018 11:33 AM CDT Body Mass Index 30.85 08/24/2018 11:33 AM CDT Plan of Treatment Not on file [place] [address] [employer] Care Teams Veneer Sander Relationship Specialty Start Date End Date Benny Rivas MD PCP - General Family Medicine 09/20/17
--- OUTSIDE RECORDS SUMMARY | 2024-05-30 15:48 | XMS_ITS | Referral Summary ---
Author Organization [facility] [address] Address [address] [place] [phone] Care Team Providers Care Manager Compliance Name Role Phone Benny Rivas MD Primary Care Provider [phone] Allergies No known active allergies Medications lisinopril [...] gangrene 05/18/2018 07/06/2018 Right inguinal hernia 09/29/20172018 Social History Tobacco Use Types Packs/Day Years Used Date Smoking Tobacco: Unknown Smokeless Tobacco: Former Chew Quit: 1997 Alcohol Use Standard Drinks/Week Comments Yes 1 (1 standard drink = 0.6 oz pur e alcohol) Sex and Gender Information Value Date Recorded Sex Assigned at Not on file Legal Sex Male 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
== END 2024-05-30 13:40 | disposition home or self-care (01) ==
PROVIDERS: PCP Family Medicine; Visit Provider Orthopaedic Surgery
DX: M17.0 Bilateral primary osteoarthritis of knee (principal)
CPT/HCPCS: 73564

== ENCOUNTER 2024-12-11 12:14 | Outpatient (CLI) | payer MEDICARE, SELFPAY ==
--- NOTE | ~2024-12-11 | XR_ITS ---
EXAMINATION: XR shoulder LT min 2V, 12/11/2024 12:30 HOME FURNISHINGS SALES REPRESENTATIVE HISTORY: M25.512 - Pain in left shoulder COMPARISON: No comparisons available. Findings: No acute fracture or malalignment. Severe degenerative changes Soft tissues unremarkable. Impression: No acute fracture or malalignment. Reviewed, dictated and finalized at location P. FURNISHINGS SALES REPRESENTATIVE Impression: No acute fracture or malalignment.
--- OUTSIDE RECORDS SUMMARY | 2024-12-11 14:10 | XMS_ITS | Clinical Summary ---
Author Organization [facility] [address] Address [address] [place] [address] Care Team Providers Care Ctc Operator Name Role Phone Benny Rivas MD Primary Care Provider [phone] Allergies No known active allergies Medications lisinopril [...] on file Legal Sex Male 9:15 AM SHIP BOSS Gender Identity Not on file Sexual Orientation [...] 11:33 AM CDT Height 177.8 cm (5' 10) 08/24/2018 11:33 AM CDT Body Mass Index 30.85 08/24/2018 11:33 AM CDT Plan of Treatment Not on file Insurance MEDICARE [employer] MEDICARE [employer] Care Teams Ctc Operator Relationship Specialty Start Date End Date Benny Rivas MD PCP - General Family Medicine 09/20/17
== END 2024-12-11 12:15 | disposition home or self-care (01) ==
PROVIDERS: PCP Family Medicine; Visit Provider Orthopaedic Surgery
DX: M25.512 Pain in left shoulder (principal)
CPT/HCPCS: 73030

== ENCOUNTER 2024-12-25 12:57 | Outpatient (RCR) | payer MEDICARE, SELFPAY ==
--- NOTE | 2024-12-25 13:46 | OPREHPOC ---
Outpatient Therapy Plan of Care This is a Multidisciplinary Plan of Care that may contain components documented by all disciplines (PT, OT, and ST.) PT Problem 1 PT Problem #1 Knowledge Deficit PT Goal 1 Goal / Goal Update The patient will demonstrate independence in a home exercise program. Target Visit 4 PT Problem 2 PT Problem #2 Pain PT Goal 1 Goal / Goal Update The patient will report no greater than 1/10 left shoulder pain with all daily and recreational activities. Target Visit 4 PT Problem 3 PT Problem #3 Impaired Functional Mobility PT Goal 1 Goal / Goal Update The patient will demonstrate 5% or less self perceived disability per the Quick DASH questionnaire. The patient will lift 10# overhead with no increased left shoulder pain. Target Visit 4 PT Problem 4 PT Problem #4 Impaired Strength PT Goal 1 Goal / Goal Update The patient will demonstrate 4/5 or greater left shoulder and elbow strength without pain elicited. Target Visit 4
--- NOTE | 2024-12-25 13:46 | PTOPEVAL1 ---
Assessment and note entered by Kirstin Boggs, PT Evaluation Information Assessment Status Evaluation Diagnosis L bicep tendinitis, L shoulder OA ICD-10 Condition Codes (PT) Pain in left shoulder M25.512 Other ICD-10 Condition Codes ( M75.22, M19.012 PT) Onset 10/22/24 Subjective Information Austin Gamez reports he injured his left bicep around 10/22/24 when he clapped his hands together quickly and felt a strain in his bicep. He reports the pain moved up to his shoulder and it kept bothering him so he went to see Dr. Medina. After a x-ray, he was diagnosed with osteoarthritis and bicep tendinitis. gave him a cortisone injection and that has taken the pain away. He still gets a twinge when he lifts out to the side and reaches behind his back. He is able to sleep without interruption now. He was sent to PT to learn home exercises. Reported Pain Level Pain Score 0: Self Report Assessment PT Clinical Summary Austin Gamez presents with left shoulder pain and was recently diagnosed with ostearthritis and bicep tendinitis. He has difficulty with reaching behind his back and out to the side. He objectively demonstrates decreased left shoulder flexion AROM and decreased left shoulder and elbow strength. Special tests are negative this date. He will benefit from skilled PT to address these limitations. Plan of Care Interventions Electrical Stimulation,Hot Pack/Cold Pack,Manual Therapy,Neuro Re-education,Patient/Caregiver Education,Therapeutic Activities,Therapeutic Exercise,Self-Care/Home Management PT Services Indicated Yes Treatment Frequency and 1 times a week for 4 visits Duration These treatments will address the objective and functional deficits as defined above. The patient will be advanced safely and appropriately in order for the patient to progress towards his/her prior level of function. Additional exercises will be introduced and as well as a comprehensive home exercise program upon discharge, if needed, ?to ensure carryover of functional gains achieved in the clinic. This treatment plan has been reviewed and agreement upon by the patient.
--- NOTE | 2025-01-24 08:48 | PCPTNOTE ---
Pt attended 2 skilled PT visits then requested to be discharged. -Kirstin Boggs, PT
== END 2025-01-01 20:00 | disposition home or self-care (01) ==
LOC: CHSPT 12:57
PROVIDERS: PCP Family Medicine; Visit Provider Orthopaedic Surgery
DX: M75.22 Bicipital tendinitis, left shoulder (principal); M19.012 Primary osteoarthritis, left shoulder
CPT/HCPCS: 97110; 97112; 97161